=== PATIENT | female | born 2000 | race Caucasian/White ===

== ENCOUNTER 2021-09-14 10:28 | Emergency (ER) | payer SELFPAY ==
[~2021-09-14 10:28] MED LIST: Iopamidol-370 76% 500 ML 1 ML ONE
[2021-09-14 11:09] LABS: #Eosinphils 0.1 thou/uL (0.0-0.7); #Lymphocytes 1.7 thou/uL (1.20-3.40); #Monocytes 0.7 thou/uL (0.11-0.59); #Neutrophils 6.9 thou/uL (1.40-6.50); %Basophils 0.4 % (0.0-1.0); %Eosinophils 0.9 % (0.0-10.0); %Lymphocytes 18.3 % (28.0-48.0); %Neutrophils 73.4 % (31.0-61.0); Hemoglobin 14.3 g/dL (12.0-16.0); Mean Corpuscular HGB CONC 34.1 g/dL (32.0-36.0); Mean Corpuscular Hemoglobin 30.1 pg (25.0-35.0); Mean Corpuscular Volume 88.3 fL (78.0-98.0); Mean Platelet Volume 6.5 fL (7.4-10.4); Platelet Count 217 thou/uL (130-400); RBC Distribution Width 12.1 % (11.5-14.5); Red Blood Cell (RBC) Count 4.75 mill/uL (4.00-5.20); White Blood Cell (WBC) Count 9.4 thou/uL (4.8-10.8)
[2021-09-14 11:18] LABS: BHCG - Serum Negative (NEGATIVE); Pregs Control Background? CLEAR/WHITE (CLR/WHITE); Pregs Control Bar Appear? YES (CONTROL BAR)
[2021-09-14 11:38] LABS: ALT (SGPT) 11 U/L (8-55); AST (SGOT) 12 U/L (5-34); Albumin 4.2 g/dL (3.5-5.0); Alkaline Phosphatase 60 U/L (40-100); Anion Gap 10 mmol/L (10-20); BUN (Urea Nitrogen) 14 mg/dL (7.0-18.7); Bilirubin, Total 1.5 mg/dL (0.2-1.2); Calc. Creatinine Clearance 0 mL/min (70-130); Calcium 9.4 mg/dL (7.8-10.44); Carbon Dioxide 27 mmol/L (22-29); Chloride 104 mmol/L (98-107); Glucose 65 mg/dL (70-105); Lipase 35 U/L (8-78); Potassium 3.6 mmol/L (3.5-5.1); Protein, Total 7.2 g/dL (6.0-8.3); Sodium 137 mmol/L (136-145)
== END 2021-09-14 12:55 | disposition home or self-care (01) ==
LOC: ERS 10:28
DX: R04.2 Hemoptysis (principal)
CPT/HCPCS: 71275; 80053; 83690; 84484; 84703; 85025; 93005; Q9967